=== PATIENT | male | born 1990 | race African-American/Black ===

== ENCOUNTER 2023-04-13 13:27 | Emergency (ER) | payer MEDICAID ==
[~2023-04-13] VITALS: Ht 188 cm; Wt 107.0 kg
[~2023-04-13 13:27] MED LIST: NONE REPORTED
[2023-04-13 13:38] VITALS: O2SAT 100
[2023-04-13 16:38] VITALS: BP 145/95; PULSE 98; RESP 18; TEMP 98.6
== END 2023-04-13 16:40 | disposition home or self-care (01) ==
LOC: ER 13:27
DX: S93.401A Sprain of unspecified ligament of right ankle, initial encounter (principal); X58.XXXA Exposure to other specified factors, initial encounter; Y93.89 Activity, other specified; Y92.89 Other specified places as the place of occurrence of the external cause; Y99.8 Other external cause status
CPT/HCPCS: 73610; 99283